=== PATIENT | male | born 1985 | race African-American/Black ===

== ENCOUNTER 2022-05-30 14:29 | Day surgery (SDC) | payer OTHER ==
[2022-05-30] VITALS (8 sets, daily range): BP systolic 119–155; BP diastolic 73–94
[~2022-05-30] VITALS: Ht 182 cm; Wt 79.6 kg
[2022-05-30] MEDS ORDERED: proPOfol 200 MG/20 ML (DIPRIVAN) VIAL IV ONE ×2 (14:45→17:41)
[2022-05-30] MEDS ORDERED: fentaNYL INJ 100 MCG/2 ML AMP IVP ONE (14:45)
[2022-05-30] MEDS ORDERED: LACTATED RINGERS 1,000 ML IV SCH (14:45)
[2022-05-30] MEDS ORDERED: ONDANSETRON 4 MG/2 ML (SDV) Z0FRAN IVP ONE (14:45)
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
[2022-05-30 14:55] LABS: BASOPHILS # (AUTO) 0.1 10^3/uL (0.0-0.1); BASOPHILS % (AUTO) 1 % (0-10); EOSINOPHILS # (AUTO) 0.6 10^3/uL (0.0-0.3); EOSINOPHILS % (AUTO) 8 % (0-10); HEMATOCRIT 40 % (40-54); HEMOGLOBIN 13.2 g/dL (13.3-17.7); LYMPHOCYTES # (AUTO) 2.8 10^3/uL (1.0-4.0); LYMPHOCYTES % (AUTO) 32 % (12-44); MEAN CORPUSCULAR HEMOGLOBIN 29 pg (25-34); MEAN CORPUSCULAR HGB CONC 33 g/dL (32-36); MEAN CORPUSCULAR VOLUME 86 fL (80-99); MEAN PLATELET VOLUME 9.8 fL (9.0-12.2); MONOCYTES # (AUTO) 0.8 10^3/uL (0.0-1.0); MONOCYTES % (AUTO) 9 % (0-12); NEUTROPHILS # (AUTO) 4.3 10^3/uL (1.8-7.8); NEUTROPHILS % (AUTO) 50 % (42-75); PLATELET COUNT 176 10^3/uL (130-400); WHITE BLOOD COUNT 8.6 10^3/uL (4.3-11.0)
[2022-05-30 15:06] LABS: ALBUMIN 4.2 GM/DL (3.2-4.5)
[2022-05-30 15:07] LABS: CALCIUM 8.7 MG/DL (8.5-10.1)
[2022-05-30 15:09] LABS: TOTAL PROTEIN 6.9 GM/DL (6.4-8.2)
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
[2022-05-30 15:10] LABS: BILIRUBIN,TOTAL 0.7 MG/DL (0.1-1.0)
[2022-05-30] MEDS ORDERED: morphine INJ 10 MG/ML 1ML (SYR OR VIAL) ONE ×2 (15:10→18:06)
[2022-05-30] MEDS ORDERED: morphine INJ 10 MG/ML 1ML (SYR OR VIAL) IVP STA (15:10)
[2022-05-30 15:12] LABS: CREATININE SERUM 1.21 MG/DL (0.60-1.30)
--- NOTE | 2022-05-30 15:12 | Diagnostic Imaging Report ---
INDICATION: Left ankle injury with pain. FINDINGS: AP, oblique, and lateral views of the left ankle are obtained. There is a displaced fracture extending through the medial malleolus, which involves the articular surface of the distal tibia. There is gas in the adjacent tissues indicating probable open nature. There is also a mildly comminuted, mildly displaced, and slightly overriding fracture of the distal fibular shaft approximately 5 cm proximal to the ankle joint. IMPRESSION: Mildly overriding comminuted fracture of distal fibular shaft with displaced intra-articular, probable open fracture at the medial malleolus. Dictated by: Dictated on workstation # [id number]
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
[2022-05-30] MEDS ORDERED: ceFAZolin INJECTION 2,000 MG in NS (IVPB) 50 ML IV ONE (15:15)
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
--- NOTE | 2022-05-30 15:58 | Progress Note-Pre Operative ---
Pre-Operative Progress Note Date of Available H&P: May 30, 2022 Date H&P Reviewed: May 30, 2022 Time H&P Reviewed: 15:57 Changes from last HP none Pre-Operative Diagnosis: grade 1 open left bimalleolar ankle fracture IRISH DEL VALLE MD May 30, 2022 15:58
--- NOTE | 2022-05-30 15:59 | Progress Note-Post Operative ---
Post-Operative Progess Note Surgeon (s)/Developmental Mathematics Professor (s) Surgeon IRISH DEL VALLE MD Developmental Mathematics Professor: Wade Ragsdale Pre-Operative Diagnosis grade 1 open left bimalleolar ankle fracture Post-Operative Diagnosis grade 1 open left bimalleolar ankle fracture Procedure & Operative Findings Date of Procedure 05/30/22 Procedure Performed/Findings irrigation and debridement of left ankle open reduction of left medial and lateral malleoli and syndesmosis Anesthesia Type GETA Estimated Blood Loss Estimated blood loss (mL): minimal Specimens/Packing Specimens Removed none Packing: none IRISH DEL VALLE MD May 30, 2022 15:59
[2022-05-30] MEDS ORDERED: BUPIVACAINE 0.5% 30 ML (SENSORCAINE) VIAL ONE (16:10)
[2022-05-30] MEDS ORDERED: fentaNYL INJ 100 MCG/2 ML AMP ONE (16:10)
[2022-05-30] MEDS ORDERED: MIDAZOLAM 2 MG/2 ML (VERSED) VIAL ONE (16:11)
[2022-05-30] MEDS ORDERED: LACTATED RINGERS 1,000 ML IV PRN (16:15)
[2022-05-30] MEDS ORDERED: OXYC1TAB11 PO (16:41)
[2022-05-30] MEDS ORDERED: oxyCODONE/APAP 5/325MG (PERCOCET 5) TABLET PO PRN (16:45)
[2022-05-30] MEDS ORDERED: ONDANSETRON 4 MG/2 ML (SDV) Z0FRAN IVP PRN ×3 (16:45→19:00)
[2022-05-30] MEDS ORDERED: NALOXONE 0.4 MG/ML 1 ML (NARCAN) VIAL IV PRN (16:45)
[2022-05-30] MEDS ORDERED: fentaNYL INJ 100 MCG/2 ML AMP IVP PRN (16:45)
[2022-05-30] MEDS ORDERED: SUCCINYLCHOLINE INJ 20 MG/1 ML 10 ML VIAL ONE (17:41)
[2022-05-30] MEDS ORDERED: LIDOCAINE PF 2% 5 ML (XYLOCAINE) VIAL ONE (17:41)
[2022-05-30] MEDS ORDERED: GLYCOPYRROLATE 0.2 MG/ML (ROBINUL) 2 ML VIAL ONE (17:41)
[2022-05-30] MEDS ORDERED: ROCURONIUM 50 MG/5 ML (ZEMURON) VIAL IV ONE (17:41)
[2022-05-30] MEDS ORDERED: ONDANSETRON 4 MG/2 ML (SDV) Z0FRAN ONE (17:41)
[2022-05-30] MEDS ORDERED: KETOROLAC 30 MG/ML VIAL ONE (18:06)
[2022-05-30] MEDS ORDERED: SEVOFLURANE (ULTANE) 15 ML INHAL SOLN ONE (18:49)
[2022-05-30] MEDS ORDERED: PROMETHAZINE INJ 25 MG/ML (PHENERGAN) AMP IVP ONE (19:00)
[2022-05-30] MEDS ORDERED: morphine INJ 10 MG/ML 1ML (SYR OR VIAL) IVP ONE (19:00)
[2022-05-30] MEDS ORDERED: MEPERIDINE (DEMEROL) INJ 50 MG/ML IVP ONE (19:00)
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
--- NOTE | 2022-05-30 19:10 | Diagnostic Imaging Report ---
INDICATION: Left ankle fracture. IMPRESSION: 42.6 seconds of fluoroscopy were used during internal fixation of left ankle. Four images were stored. Dictated by: Dictated on workstation # [id number]
[2022-05-30] MEDS ORDERED: ceFAZolin INJECTION 2,000 MG in NS (IVPB) 50 ML IV SCH (23:40)
[2022-05-31] VITALS: BP 134/69
--- NOTE | 2022-05-31 00:12 | OPERATIVE REPORT ---
DATE OF SERVICE: 05/30/2022 PREOPERATIVE DIAGNOSES: 1. Grade 1 open left lateral malleolus fracture. 2. Left medial malleolus fracture. 3. Left syndesmosis disruption. POSTOPERATIVE DIAGNOSES: 1. Grade 1 open left lateral malleolus fracture. 2. Left medial malleolus fracture. 3. Left syndesmosis disruption. PROCEDURES: 1. Open reduction and internal fixation of the left lateral malleolus. 2. Open reduction and internal fixation of the left medial malleolus. 3. Open reduction and internal fixation of left syndesmosis. 4. Irrigation and debridement of left lateral malleolus. SURGEON: Irish Del Valle MD FORENSIC ANTHROPOLOGIST: KIM Humphrey, who assisted throughout the procedure and closed the incisions. ANESTHESIA: General endotracheal by Anita Fung CRNA. TOURNIQUET TIME: 75 minutes at 300 mmHg. ESTIMATED BLOOD LOSS: Minimal. DRAINS: None. COMPLICATIONS: None. POSTOPERATIVE PLAN: IV antibiotics for 24 hours. The patient was transferred to the recovery room in awake and stable condition. STATEMENT OF MEDICAL NECESSITY: The patient is a 37-year-old gentleman who was injured at work today. He was struck and pulled by an asphalt machine and then thrown into another machine. He presented with ankle pain and was found to have a 1 cm laceration on the anterior lateral aspect of his distal leg. He had a complex fracture of his fibula distally as well as a medial malleolus fracture. It was felt that this likely was an open fracture because of the adjacent laceration, though it appeared to be somewhat distant from the actual fracture site. The patient was given 2 grams of Ancef in the Emergency Department and taken urgently to the operating room. DESCRIPTION OF PROCEDURE: After risks and benefits of the procedure were discussed and questions were answered and informed consent signed and placed on the chart, the operative site was confirmed in the preoperative holding and initialed by surgeon. The patient was then transferred to the operating room. After adequate levels of general endotracheal anesthetic were obtained, timeout was called, confirming the operative site. The left lower extremity was prepped and draped in the usual sterile fashion. The laceration site was approximately 1 cm in size. There was no gross contamination as the patient was wearing a sock and a boot at the time of his injury. This was explored and appeared to communicate with the fibula, though it was quite distant from the actual fracture site. The laceration was extended proximally and distally and then irrigated with pulse lavage. The tourniquet was inflated. An incision was made over the fibula at the fracture site. The underlying soft tissues were carefully dissected exposing the fracture. This was a segmental fracture with large butterfly fragment. This wound was then irrigated with pulse lavage. A total of 6 liters were used throughout the procedure. No gross contamination was noted. The butterfly fragment was lag screwed to each of the proximal and distal fragments using a 2.7 Synthes cortical screw. An 8-hole one-third tubular plate was then placed with 2 cortical screws distally and 3 cortical screws proximally. Under live time fluoroscopy, the syndesmosis widened, therefore, I elected to place a TightRope. There was slight step off of the butterfly fragment posteriorly, but the fibular shaft was well aligned. This was felt to be acceptable as the fracture was stable. An incision was then made longitudinally over the medial malleolus. This was then anatomically reduced under direct visualization. Two guidewires were passed across the fracture site in a parallel fashion. These were then overdrilled and 4.0 partially threaded cancellous screws were placed, 50 mm in length with excellent purchase obtained. The articular surface was anatomically reduced under direct visualization. There was no impingement of the posterior tibialis posteriorly. Ankle was taken through range of motion with full motion noted. The distal plate hole was then used to place the TightRope device parallel to the joint surface. The button was flipped at the fracture medially. This pulled down to the bony surface and then was tensioned with the ankle held at neutral dorsiflexion. The wounds were copiously irrigated. The laceration site anteriorly had been closed with 4-0 Vicryl in simple interrupted fashion. Prior to fixation, 0 Vicryl was used for deep subcutaneous layer at the lateral incision. A 2-0 Vicryl was used for subcutaneous layer for both incisions and the skin was closed with 4-0 nylon vertical mattress interrupted fashion. The tourniquet was deflated, soft dressing and splint were applied. The patient was transferred to the recovery room awake and in stable condition. Job ID: [id number] DocumentID: [id number] Dictated Date: 05/30/2022 18:23:40 Medicare Specialist Date: 05/31/2022 00:10:00 Dictated By: IRISH DEL VALLE MD
[2022-05-31] MEDS: ceFAZolin INJECTION 2,000 MG in NS (IVPB) 50 ML IV SCH ×2 (00:13→08:27)
[2022-05-31 04:23] VITALS: BP 119/73
[2022-05-31] MEDS ORDERED: CEPH500T PO (07:02)
--- NOTE | 2022-05-31 07:04 | Progress Note ---
Standard Progress Note Progress Notes/Assess & Plan Date Seen by a Provider: May 31, 2022 Time Seen by a Provider: 06:57 Progress/Assessment & Plan patient insisting on leaving today LLE--intact DF and PF of toes and ankle sensationintact throughout brisk cap refill s/p I and D and ORIF left ankle IV abx PT IRISH DEL VALLE MD May 31, 2022 07:04
[2022-05-31 07:52] VITALS: BP 137/79
--- NOTE | 2022-05-31 08:30 | Physical Therapy Evaluation ---
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 8-Bwdzbcciil-xghnxne completes the activity by him/herself with no assistance from a helper. 5-Set-up or Clean-up Assistance-helper sets up or cleans up; patient completes activity. Elmo assists only prior to or following the activity. 4-Supervision or Touching Assistance-helper provides verbal cues and/or touching/steadying and/or contact guard assistance as patient completes activity. Assistance may be provided throughout the activity or intermittently. 3-Partial/Moderate Assistance-helper does LESS THAN HALF the effort. Elmo lifts, holds or supports trunk or limbs, but provides less than half the effort. 2-Substantial/Maximal Assistance-helper does MORE THAN HALF the effort. Elmo lifts or holds trunk or limbs and provides more than half the effort. 3-Qvykshrxe-flhftd does ALL the effort. Patient does none of the effort to complete the activity. Or, the assistance of 2 or more helpers is required for the patient to complete the activity. If activity was not attempted, code reason: 7-Patient Refused. 9-Not Applicable-not attempted and the patient did not perform the activity before the current illness, exacerbation or injury. 10-Not Attempted due to Environmental Limitations-(lack of equipment, weather restraints, etc.). 88-Not Attempted due to Medical Conditions or Safety Concerns. Bed Mobility: 6 Transfers (B,C,W/C): 6 Gait: 6 Stairs: 6 Indoor Mobility (Ambulation): Independent Stairs: Independent Prior Devices Use: None PT Evaluation-Current Subjective Patient agrees to PT. Objective Patient Orientation: Normal For Age ROM/Strength ROM Lower Extremities left ankle soft cast/right LE WFL Strength Lower Extremities left LE NT/right LE 5/5 Integumentary/Posture Bowel Incontinence: No Bladder Incontinence: No Neuromuscular (Tone, Coordination, Reflexes) grossly intact Sensory Vision: Functional Hearing: Functional Transfers Roll Left to Right (QC): 6 Sit to Lying (QC): 6 Lying to Sitting/Side of Bed(Q: 6 Sit to Stand (QC): 6 Gait Mode of Locomotion: Walk Anticipated Mode of Locomotion: Walk Walk 10 feet (QC): 6 Walk 50 ft with 2 Turns(QC): 6 Walk 150 ft (QC): 6 Distance: 150' x 2 Gait Assistive Device: Crutches Comments/Gait Description TTWB left LE Stairs #of Steps: 12 1 Step (curb) (QC): 4 4 Steps (QC): 4 12 Steps (QC): 4 Walking Assistive Device: Crutches Balance Sitting Static: Normal Sitting Dynamic: Normal Standing Static: Fair Standing Dynamic: Fair Assessment/Needs Patient issued crutches with gait and step training. Patient currently at functional [facility]. PT to dismiss patient from services. Rehab Potential: Good PT Plan Treatment/Plan Treatment Plan: Discontinue PT, goals met Treatment Duration: May 31, 2022 Frequency: 1 time per week Estimated Hrs Per Day: .25 hour per day Patient and/or Family Agrees t: Yes Safety Risks/Education Patient Education: Gait Training, Steps Time Time In: 710 Time Out: 725 DATE: May 31, 2022 Total Billed Treatment Time: 15 Total Billed Treatment 1 visit [facility] 15 min ISAURA ZULETA PT May 31, 2022 08:30
--- NOTE | 2022-05-31 13:36 | Anesthesia-General Post-Op ---
General Patient Condition Mental Status/LOC: Same as Preop Cardiovascular: Satisfactory Nausea/Vomiting: Absent Respiratory: Satisfactory Pain: Controlled Complications: Absent Post Op Complications Complications None Follow Up Care/Instructions Patient Instructions None needed. Anesthesia/Patient Condition Patient Condition Patient is doing well, no complaints, stable vital signs, no apparent adverse anesthesia problems. No complications reported per nursing. YUMIKO MARIO CRNA May 31, 2022 13:36
--- NOTE | 2022-05-31 23:56 | DISCHARGE SUMMARY ---
DATE OF SERVICE: 05/30/2022 DIAGNOSIS: Grade I open left bimalleolar ankle fracture with syndesmosis disruption. PROCEDURES: Irrigation and debridement of left ankle with open reduction and internal fixation of bimalleolar ankle fracture and syndesmosis. SUMMARY: The patient is a 37-year-old gentleman who was injured on the job site and presented to the Emergency Department with a grade I open bimalleolar ankle fracture and disruption of the syndesmosis. He was taken urgently to the operating room where he underwent irrigation and debridement and internal fixation. The patient is insistent on leaving today. I explained to the patient that he will have to sign out against medical advice as I recommended IV antibiotics until tomorrow morning. The patient understands he is at higher risk of infection and complications. DISCHARGE MEDICATIONS: Percocet and Keflex. FOLLOWUP: Followup is in 2 weeks. ACTIVITIES: Toe touch weightbearing left lower extremity. I have also recommended aspirin 1 per day for 2 weeks. The patient is returning to [place] and I have recommended that he stop two to three times on the way and stretch his legs to lower the risk of blood clots. Job ID: [id number] DocumentID: [id number] Dictated Date: 05/31/2022 07:00:28 [employer] Sales Representative Date: 05/31/2022 23:54:00 Dictated By: IRISH DEL VALLE MD
== END 2022-05-31 09:26 | disposition left against medical advice (07) ==
LOC: ER 14:32 → SDC 16:14 → 4TH 19:48 → SDC 05-31 09:26
PROVIDERS: ATTEND Orthopaedic Surgery
DX: S82.842B Displaced bimalleolar fracture of left lower leg, initial encounter for open fracture type I or II (principal); S93.432A Sprain of tibiofibular ligament of left ankle, initial encounter; S40.811A Abrasion of right upper arm, initial encounter; S40.211A Abrasion of right shoulder, initial encounter; S60.812A Abrasion of left wrist, initial encounter; S60.811A Abrasion of right wrist, initial encounter; S80.812A Abrasion, left lower leg, initial encounter; S80.811A Abrasion, right lower leg, initial encounter; W22.8XXA Striking against or struck by other objects, initial encounter; W31.89XA Contact with other specified machinery, initial encounter
CPT/HCPCS: 27752; 27814; 27829; 29515; 71045; 72125; 73590; 73610; 76000; 80053; 82550; 85025; 97162; 99291; C1713 ×7; 36415